=== PATIENT | male | born 1990 | race Caucasian/White ===

== ENCOUNTER 2022-12-07 13:15 | Emergency (ER) | payer BC ==
[2022-12-07] MEDS ORDERED: Bacitracin Oint 1 GM U/D Packet TOP ONE (14:39)
[2022-12-07] MEDS ORDERED: Lidocaine 1% with EPINEPHrine 1:100,000 50 ML MDV INFILT ONE (14:39)
== END 2022-12-07 16:09 | disposition home or self-care (01) ==
LOC: JP.ED 13:15
DX: S61.412A Laceration without foreign body of left hand, initial encounter (principal); W26.0XXA Contact with knife, initial encounter
CPT/HCPCS: 12002; 99282